=== PATIENT | female | born 1945 | race Caucasian/White ===

== ENCOUNTER 2019-09-01 10:58 | Outpatient (CLI) | payer OTHER | END 2019-09-01 11:14 | disposition home or self-care (01) | LOC: LAB 10:58 | DX: C18.0 Malignant neoplasm of cecum (principal); D37.4 Neoplasm of uncertain behavior of colon; R59.0 Localized enlarged lymph nodes; I10 Essential (primary) hypertension ==

== ENCOUNTER 2019-09-01 12:55 | Outpatient (CLI) | payer OTHER | END 2019-09-01 13:04 | disposition home or self-care (01) | LOC: TOM 12:55 | DX: C18.2 Malignant neoplasm of ascending colon (principal) | CPT/HCPCS: 74177; Q9965 ==